=== PATIENT | male | born 1960 | race Caucasian/White ===

== ENCOUNTER 2019-12-22 15:32 | Emergency (ER) | payer MEDICARE ==
[~2019-12-22] VITALS: Ht 182.9 cm; Wt 143.2 kg
[2019-12-22 15:34] VITALS: TEMP 98.3
[2019-12-22] MEDS ORDERED: TYLENOL 8 HR PO (16:44)
[2019-12-22] MEDS ORDERED: TYLENOL 325MG325 MG PO (16:44)
[2019-12-22] MEDS ORDERED: ASPIRIN 81M81 MG/TA2 PO (16:45)
[2019-12-22] MEDS ORDERED: ZYLOPRIM 100MG100 MG PO (16:45)
[2019-12-22] MEDS ORDERED: LIPITOR20 MG PO (16:46)
[2019-12-22] MEDS ORDERED: CIPRO 500MG TA500 MG PO (17:12)
[2019-12-22 17:45] VITALS: BP 139/86; PULSE 73
== END 2019-12-22 17:45 | disposition home or self-care (01) ==
LOC: COL.ER 15:32
DX: J04.11 Acute tracheitis with obstruction (principal); I10 Essential (primary) hypertension; Z79.82 Long term (current) use of aspirin; Z87.891 Personal history of nicotine dependence

== ENCOUNTER 2019-12-25 17:16 | Emergency (ER) | payer MEDICARE ==
[~2019-12-25] VITALS: Ht 188 cm; Wt 134.1 kg
[~2019-12-25 17:16] MED LIST: ASPIRIN 81M81 MG/TA2 PO; CIPRO 500MG TA500 MG PO; LIPITOR20 MG PO; TYLENOL 325MG325 MG PO; TYLENOL 8 HR PO; ZYLOPRIM 100MG100 MG PO
[2019-12-25 17:40] VITALS: BP 190/63
== END 2019-12-26 00:10 | disposition expired ==
LOC: COL.ER 17:22
DX: I46.9 Cardiac arrest, cause unspecified (principal); E78.5 Hyperlipidemia, unspecified; M10.9 Gout, unspecified; E66.01 Morbid (severe) obesity due to excess calories; Z68.37 Body mass index [BMI] 37.0-37.9, adult
CPT/HCPCS: J0171; J7030